=== PATIENT | female | born 1990 | race Caucasian/White ===

== ENCOUNTER 2022-12-31 14:22 | Emergency (ER) | payer OTHER ==
[~2022-12-31] VITALS: Ht 172.7 cm; Wt 81.6 kg
[2022-12-31 14:41] VITALS: BP_SYST 160; PULSE 78; RESP 16; TEMP 97.5; O2SAT 98
[2022-12-31] MEDS ORDERED: HYDROcodone/ACETAMIN 10-325 MG TAB PO ONE (17:45)
[2022-12-31] MEDS ORDERED: IBUPROFEN 800 MG TABLET PO ONE (17:45)
[2022-12-31] MEDS ORDERED: IBUP-1971 PO (18:02)
[2022-12-31] MEDS ORDERED: TRAM50TA2 PO (18:02)
[2022-12-31 18:11] VITALS: BP_SYST 160; PULSE 78; RESP 16; TEMP 97.5; O2SAT 98
== END 2022-12-31 18:11 | disposition home or self-care (01) ==
LOC: SED 14:22
DX: G89.29 Other chronic pain (principal); M25.512 Pain in left shoulder; Z79.899 Other long term (current) drug therapy
CPT/HCPCS: 73030; 99283